=== PATIENT | female | born 1945 | race Caucasian/White ===

== ENCOUNTER 2023-02-18 18:53 | Emergency (ER) | payer MEDICARE, MEDICAID, SELFPAY ==
--- NOTE | ~2023-02-18 | CT_ITS ---
EXAMINATION: CT brain wo con DATE: 02/18/2023 20:58 INDICATION: fall, hit head . TECHNIQUE: Computed tomography (CT) of the head was performed without intravenous contrast. The mA wa s adjusted according to patient size. Iterative reconstruction technique was employed. The dose-lengt h product was 605.33 mGy-cm. COMPARISON: 12/17/2007. FINDINGS: No acute intracranial hemorrhage or extra-axial fluid collection. No hydrocephalus, mass, or herniation. No acute ischemic infarct. Unremarkable dural venous sinus attenuation. No acute osseous abnormality. Nodular mucosal thickening in the right maxillary sinus, trace aerated secretions in the bilateral ma xillary sinuses, small volume right mastoid fluid, the remaining aerated spaces are clear. Mild atrophy and chronic white matter change. Atherosclerotic intracranial calcification. Bilateral l ens replacements. IMPRESSION: No acute intracranial process. Reviewed, dictated and finalized at location K. GER DOCUMENT CONTROL
--- NOTE | ~2023-02-18 | XR_ITS ---
EXAM: XR knee RT 3V DATE: 02/18/2023 21:01 HISTORY: fall, knee pain . COMPARISON: None available. FINDINGS: Normal mineralization. No fracture or dislocation. No lytic or blastic lesion. Arthritic c hanges, moderate in the patellofemoral compartment. Ossific fragmentation at the insertion of the chacha driceps with overlying soft tissue. Extensive severe chondrocalcinosis. Extensive vascular calcificat ions. No erosion or periosteal change. Soft tissues within normal limits. IMPRESSION: No acute osseous finding in the right knee. Reviewed, dictated and finalized at location K. D CARE MANAGER
[2023-02-18 18:56] VITALS: BP 148/47; PULSE 57; RESP 20; TEMP 36.4; O2SAT 98
--- NOTE | 2023-02-18 20:09 | ED.HEATRA ---
HPI - Head Injury General Chief complaint: Head Injury Stated complaint: FALL, HEAD INJURY Time Seen by Provider: 02/18/23 19:48 History of Present Illness HPI Narrative: Patient is a 77-year-old female presenting after a fall. Patient states that she slipped from her pillow and fell to the ground landing on her butt. She fell back and struck her head. No loss of consciousness. She denies headache or neck pain. States that she often feels dizzy and this has been happening lately. States it is not new. No further complaints other than wanting to eat. Related Data Home Medications Medication Instructions Recorded Confirmed albuterol sulfate 90 mcg/actuation 1 inhalation inhalation Q4H 02/20/19 12/24/19 aerosol inhaler (ProAir HFA) aspirin 81 mg tablet,delayed 81 mg PO DAILY 02/20/19 12/24/19 release (Adult Aspirin Regimen) atenolol 25 mg tablet 25 mg PO DAILY 02/20/19 12/24/19 cetirizine 10 mg capsule (Zyrtec) PO PRN 02/20/19 12/24/19 cholecalciferol (vitamin D3) 250 10,000 unit PO DAILY 02/20/19 12/24/19 mcg (10,000 unit) capsule cilostazol 100 mg tablet 100 mg PO BID 02/20/19 12/24/19 duloxetine 60 mg capsule,delayed 60 mg PO DAILY 02/20/19 12/24/19 release fluticasone propionate 50 1 spray intranasal DAILY 02/20/19 12/24/19 mcg/actuation nasal spray,suspension (Allergy Relief (fluticasone)) furosemide 20 mg tablet 20 mg PO QAM 02/20/19 12/24/19 isosorbide mononitrate 60 mg 60 mg PO DAILY 02/20/19 12/24/19 tablet,extended release 24 hr lorazepam 1 mg tablet 1 mg PO DAILY PRN 02/20/19 12/24/19 mecobalamin (vitamin B12) 1,000 1,000 mcg sublingual DAILY 02/20/19 12/24/19 mcg disintegrating tablet,sublingual nitroglycerin 0.4 mg sublingual 0.4 mg sublingual Q5M PRN 02/20/19 12/24/19 tablet (Nitrostat) omega-3 fatty acids 1,000 mg 1,000 mg PO DAILY 02/20/19 12/24/19 capsule (Fish Oil Concentrate) pantoprazole 40 mg tablet,delayed 40 mg PO QAM 02/20/19 12/24/19 release ascorbic acid (vitamin C) 500 mg 500 mg PO DAILY 09/17/19 12/24/19 capsule clopidogrel 75 mg tablet See Rx Instructions PO DAILY 09/17/19 12/24/19 gabapentin 300 mg capsule See Rx Instructions PO DAILY 09/17/19 12/24/19 levothyroxine 100 mcg tablet 100 mcg PO QAM 09/17/19 12/24/19 rosuvastatin 20 mg tablet 20 mg PO QPM 09/17/19 12/24/19 Allergies Allergy/AdvReac Type Severity Reaction Status Date / Time potassium Allergy Mild Unknown Verified 02/18/23 19:56 acetaminophen Allergy Unknown Unknown Verified 02/18/23 19:56 codeine Allergy Unknown Unknown Verified 02/18/23 19:56 latex Allergy Unknown Unknown Verified 02/18/23 19:56 metformin Allergy Unknown Unknown Verified 02/18/23 19:56 Penicillins Allergy Unknown Unknown Verified 02/18/23 19:56 potassium chloride Allergy Unknown Unknown Verified 02/18/23 19:56 Sulfa (Sulfonamide Allergy Unknown Unknown Verified 02/18/23 19:56 Antibiotics) ACETAMINOPHEN/CODEINE Allergy Unknown Y Uncoded 02/18/23 19:56 (Generic Allergy) FLUOXETINE HCL (Generic Allergy Unknown Y Uncoded 02/18/23 19:56 Allergy) NONE Allergy Unknown Unknown Uncoded 02/18/23 19:56 PCN TYLENOL#3 GEMERIC BRANDS Allergy Unknown Unknown Uncoded 02/18/23 19:56 PROZAC SULFA SSRI Allergy Unknown Unknown Uncoded 02/18/23 19:56 Review of Systems Review of Systems: All systems reviewed & are unremarkable except as noted in HPI and below PMFSH Past Medical History Medical History (Updated 02/18/23 @ 21:56 by Fátima Kruger MD) Arthritis Back pain Chest pain COPD (chronic obstructive pulmonary disease) Depression Hearing loss High blood pressure Stroke Thyroid disease Surgical History Surgical History Hx of appendectomy Family History Family History Other Diabetes mellitus Family history of cardiovascular disease Family history of hearing loss Social Histo
[2023-02-18 22:40] VITALS: BP 154/80; PULSE 76; RESP 18; O2SAT 99
== END 2023-02-18 22:40 | disposition home or self-care (01) ==
PROVIDERS: Emergency Provider Emergency Medicine; PCP Student in an Organized Health Care Education/Training Program
DX: S09.90XA Unspecified injury of head, initial encounter (principal); M25.561 Pain in right knee; J44.9 Chronic obstructive pulmonary disease, unspecified; I10 Essential (primary) hypertension; E07.9 Disorder of thyroid, unspecified; M19.90 Unspecified osteoarthritis, unspecified site; F17.210 Nicotine dependence, cigarettes, uncomplicated; Z86.73 Personal history of transient ischemic attack (TIA), and cerebral infarction without residual deficits; Z79.82 Long term (current) use of aspirin; W07.XXXA Fall from chair, initial encounter
CPT/HCPCS: 70450; 73562; 99284

== ENCOUNTER 2024-02-26 09:20 | Outpatient (CLI) | payer MEDICARE, MEDICAID, SELFPAY ==
--- NOTE | ~2024-02-26 | CT_ITS ---
EXAMINATION: CT abdomen pelvis wo/w con DATE: 02/26/2024 10:14 INDICATION: Kidney mass. TECHNIQUE: Computed tomography (CT) of the abdomen and pelvis was performed without and with Omnipaqu e 350 intravenous contrast. Automated exposure control and iterative reconstruction technique were em ployed. The dose-length product was 1849.81 mGy-cm. COMPARISON: None. FINDINGS: The visualized portions of the lung bases demonstrate mild atelectasis. Calcified pulmonary nodules are consistent with old granulomatous disease. No pleural effusion. The heart size is normal . There are coronary artery calcifications. No pericardial effusion. The liver and gallbladder are no rmal. Calcifications in the spleen are consistent with old granulomatous disease. Calcifications in t he pancreas are consistent with chronic pancreatitis. The adrenal glands are normal. There is cortica l thinning in the kidneys. There is a 6.2 x 4.1 cm enhancing mass in left kidney. There is no urolith iasis. There is diverticulosis of the colon without evidence of diverticulitis. There are no dilated loops of bowel. The appendix is not visualized. There are no pathologically enlarged lymph nodes. The re is no free intraperitoneal fluid. There is calcified atherosclerosis of the aorta and many of the other arteries. There is subcutaneous fat stranding with calcifications in the anterior abdominal wal l, likely inflammation/scarring. There is severe lumbar spondylosis and moderate thoracic spondylosis . Lumbar dextroscoliosis is noted. IMPRESSION: 1. 6.2 cm enhancing left kidney mass, which may be renal cell carcinoma or urothelial carcinoma. Reviewed, dictated and finalized at location A. SUBSTATION OPERATOR IMPRESSION: 1. 6.2 cm enhancing left kidney mass, which may be renal cell carcinoma or urot helial carcinoma.
[2024-02-26 10:03] LABS: Estimated Glomerular Filt Rate > 60
== END 2024-02-26 09:21 | disposition home or self-care (01) ==
PROVIDERS: PCP Student in an Organized Health Care Education/Training Program; Visit Provider Family Medicine
DX: N28.89 Other specified disorders of kidney and ureter (principal)
CPT/HCPCS: 74178; Q9967